=== PATIENT | male | born 1960 | race Caucasian/White ===

== ENCOUNTER → 2018-04-06 | Outpatient (CLI) | payer OTHER | END | disposition home or self-care (01) | LOC: OIH 15:03 | PROVIDERS: ATTEND Internal Medicine Cardiovascular Disease | DX: Z13.6 Encounter for screening for cardiovascular disorders (principal) | CPT/HCPCS: 75571 ==

== ENCOUNTER → 2019-12-26 | Outpatient (CLI) | payer OTHER | END | disposition home or self-care (01) | LOC: RAH 10:02 | PROVIDERS: ATTEND Internal Medicine Cardiovascular Disease | DX: Z13.6 Encounter for screening for cardiovascular disorders (principal); I71.4 Abdominal aortic aneurysm, without rupture | CPT/HCPCS: 75571 ==

== ENCOUNTER 2020-10-29 06:23 | Day surgery (SDC) | payer OTHER ==
[2020-10-22 10:04] LABS: BASOPHILS % (AUTO) 0.9 % (0.0-5.0); EOSINOPHILS % (AUTO) 3.8 % (0.0-8.0); HEMATOCRIT 45.4 % (42-54); LYMPHOCYTES % (AUTO) 16.9 % (21.0-51.0); MEAN CORPUSCULAR HEMOGLOBIN 29.7 pg (27.0-33.0); MEAN CORPUSCULAR HGB CONC 33.7 g/dL (32.0-36.0); MEAN CORPUSCULAR VOLUME 88.2 fL (79-99); MONOCYTES % (AUTO) 6.2 % (3.0-13.0); NEUTROPHILS % (AUTO) 71.4 % (40.0-77.0); PLATELET COUNT (AUTO) 418 K/uL (130-400); RED BLOOD CELL COUNT(AUTO) 5.15 MIL/uL (4.50-6.20); RED CELL DISTRIBUTION WIDTH 13.2 % (11.0-15.5); WHITE BLOOD COUNT (AUTO) 10.3 K/uL (4.8-10.8)
[2020-10-22 10:08] LABS: CREATININE 0.8 mg/dL (0.5-1.5); POTASSIUM 3.9 mmol/L (3.5-5.1)
[2020-10-26 09:20] VITALS: BP 166/96
[2020-10-29] VITALS (16 sets, daily range): BP systolic 115–159; BP diastolic 73–100
[~2020-10-29] VITALS: Ht 182.9 cm; Wt 141.5 kg
[~2020-10-29 06:23] MED LIST: ASPI-1005 PO; LISI-613 PO; LOSA100T58 PO
[2020-10-29] MEDS ORDERED: CEFAZOLIN SODIUM 1 GM VIAL ONE (06:47)
[2020-10-29] MEDS ORDERED: LACTATED RINGERS 1000ML 1,000 ML IV ONE (06:48)
[2020-10-29] MEDS ORDERED: FENTANYL CITRATE PF 50 MCG/1 ML 2ML VIAL ONE (07:24)
[2020-10-29] MEDS ORDERED: ROCURONIUM 10MG/1ML SYR 10 MG/ML ML ONE (07:24)
[2020-10-29] MEDS ORDERED: LIDOCAINE PF 2% 5ML ABBOJECT ONE (07:24)
[2020-10-29] MEDS ORDERED: PROPOFOL 10 MG/ML 20ML VIAL IV ONE ×2 (07:24→09:27)
[2020-10-29] MEDS ORDERED: MIDAZOLAM HCL 1 MG/ML 2ML VIAL ONE (07:24)
[2020-10-29] MEDS ORDERED: SUCCINYLCHOLINE CHLORIDE 20 MG/ML 10 ML VIAL ONE (07:24)
[2020-10-29] MEDS ORDERED: ATOR20TA65 PO (07:35)
[2020-10-29] MEDS ORDERED: IBUP-2071 PO (07:35)
[2020-10-29] MEDS ORDERED: DEXAMETHASONE SOD PHOSPHATE 4 MG/ML 1ML VIAL ONE (08:26)
[2020-10-29] MEDS ORDERED: ONDANSETRON HCL 4 MG/2 ML VIAL ONE (08:27)
[2020-10-29] MEDS ORDERED: ALBUTEROL INHALER 90MCG/INH IH ONE (08:43)
[2020-10-29] MEDS ORDERED: NEOSTIGMINE 5MG/5ML SYR IV ONE (08:46)
[2020-10-29] MEDS ORDERED: GLYCOPYRROLATE 1 MG/5 ML SYRINGE ONE (08:46)
[2020-10-29] MEDS ORDERED: CEPH500B PO (09:30)
[2020-10-29] MEDS ORDERED: ACET1TAB25 PO (09:30)
[2020-10-29] MEDS ORDERED: MEPERIDINE-PF 25 MG/ML SYG ONE (10:02)
== END 2020-10-29 11:10 | disposition home or self-care (01) ==
LOC: DAH 06:23
PROVIDERS: ATTEND Orthopaedic Surgery
DX: S83.242A Other tear of medial meniscus, current injury, left knee, initial encounter (principal); M17.12 Unilateral primary osteoarthritis, left knee; Z20.828 Contact with and (suspected) exposure to other viral communicable diseases; M22.42 Chondromalacia patellae, left knee; G89.29 Other chronic pain; I10 Essential (primary) hypertension; J45.909 Unspecified asthma, uncomplicated; G47.30 Sleep apnea, unspecified; E78.5 Hyperlipidemia, unspecified; E66.9 Obesity, unspecified; Z98.890 Other specified postprocedural states; Z82.49 Family history of ischemic heart disease and other diseases of the circulatory system; Z72.89 Other problems related to lifestyle; Z79.899 Other long term (current) drug therapy; X58.XXXA Exposure to other specified factors, initial encounter; Y93.89 Activity, other specified; Y92.89 Other specified places as the place of occurrence of the external cause
CPT/HCPCS: 29881; 36415; 80048; 85025; A4215; A4221; A4222; A4223; A4606; A4649 ×2; A4663; A4930; A6223; C9803; J0330; J0690; J1100; J2001; J2175; J2250; J2405; J2704 ×2; J2710; J3010; J3490; J7120 ×2; U0003

== ENCOUNTER → 2021-01-10 | Outpatient (CLI) | payer OTHER ==
[~2021-01-10] MED LIST changes: +ACET1TAB25 PO; +ATOR20TA65 PO; +CEPH500B PO; +IBUP-2071 PO; -LISI-613 PO; +LISI20TA24 PO
== END | disposition home or self-care (01) ==
LOC: RAH 13:51
PROVIDERS: ATTEND Internal Medicine Cardiovascular Disease
DX: Z13.6 Encounter for screening for cardiovascular disorders (principal)
CPT/HCPCS: 75571

== ENCOUNTER 2021-12-13 09:00 | Inpatient (IN) | payer OTHER ==
[~2021-12-13] VITALS: Ht 182.9 cm; Wt 144.2 kg
[~2021-12-13 09:00] MED LIST changes: -ACET1TAB25 PO; -ASPI-1005 PO; -ATOR20TA65 PO; -CEPH500B PO; -IBUP-2071 PO; -LISI20TA24 PO
[2021-12-13 09:36] LABS: BASOPHILS % (AUTO) 0.8 % (0.0-5.0); EOSINOPHILS % (AUTO) 2.8 % (0.0-8.0); HEMATOCRIT 43.6 % (42-54); LYMPHOCYTES % (AUTO) 18.1 % (21.0-51.0); MEAN CORPUSCULAR HEMOGLOBIN 29.4 pg (27.0-33.0); MEAN CORPUSCULAR HGB CONC 33.9 g/dL (32.0-36.0); MEAN CORPUSCULAR VOLUME 86.7 fL (79-99); MONOCYTES % (AUTO) 6.5 % (3.0-13.0); NEUTROPHILS % (AUTO) 70.8 % (40.0-77.0); PLATELET COUNT (AUTO) 378 K/uL (130-400); RED BLOOD CELL COUNT(AUTO) 5.03 MIL/uL (4.50-6.20); RED CELL DISTRIBUTION WIDTH 13.3 % (11.0-15.5); WHITE BLOOD COUNT (AUTO) 10.9 K/uL (4.8-10.8)
[2021-12-13 09:44] LABS: APPEARANCE,URINE Clear (CLEAR); BILIRUBIN,URINE Negative (NEGATIVE); COLOR,URINE Yellow (YELLOW); GLUCOSE, URINE (UA) Negative (NEGATIVE); KETONES,URINE Negative (NEGATIVE); LEUKOCYTE ESTERASE ,URINE Negative (NEGATIVE); NITRATE,URINE Negative (NEGATIVE); OCCULT BLOOD,URINE Negative (NEGATIVE); PH,URINE 7.5 (5.0-8.0); PROTEIN,URINE Negative (NEGATIVE)
[2021-12-13 09:51] LABS: CREATININE 0.7 mg/dL (0.5-1.5); POTASSIUM 3.4 mmol/L (3.5-5.1)
[2021-12-13 09:53] VITALS: BP 123/79
[2021-12-13 09:55] LABS: INR 1.01 (0.85-1.15)
[2021-12-13] MEDS ORDERED: AMLO-257 PO (11:08)
[2021-12-13] MEDS ORDERED: ATOR-2 PO (11:08)
[2021-12-13] MEDS ORDERED: LOSA100T58 PO (11:08)
[2021-12-13] MEDS ORDERED: CHLO25TA3 PO (11:08)
[2021-12-16] VITALS (26 sets, daily range): BP systolic 97–159; BP diastolic 50–106
[2021-12-16] MEDS ORDERED: LACTATED RINGERS 1000ML 1,000 ML IV ONE (06:45)
[2021-12-16] MEDS: CEFAZOLIN SODIUM 1 GM VIAL ONE ×2 (06:53→08:49)
[2021-12-16] MEDS ORDERED: ASPI-1443 PO (06:55)
[2021-12-16] MEDS ORDERED: CEFAZOLIN SODIUM 1 GM VIAL ONE (07:39)
[2021-12-16] MEDS ORDERED: CEFAZOLIN SODIUM 3 GM in 0.9%NACL 100ML 100 ML IVP SCH ×2 (08:00→19:30)
[2021-12-16] MEDS ORDERED: LIDOCAINE PF 100MG/5ML (2%) SYRINGE 5ML ONE (08:33)
[2021-12-16] MEDS ORDERED: SUCCINYLCHOLINE CHLORIDE 20 MG/ML 10 ML VIAL ONE (08:34)
[2021-12-16] MEDS ORDERED: MIDAZOLAM HCL 1 MG/ML 2ML VIAL ONE (08:34)
[2021-12-16] MEDS ORDERED: PROPOFOL 10 MG/ML 20ML VIAL IV ONE (08:34)
[2021-12-16] MEDS ORDERED: FENTANYL CITRATE PF 50 MCG/1 ML 2ML VIAL ONE ×2 (08:34→09:23)
[2021-12-16] MEDS ORDERED: ROCURONIUM 10MG/1ML SYR 10 MG/ML ML ONE ×2 (08:34→09:23)
[2021-12-16] MEDS ORDERED: TRANEXAMIC ACID 1000MG/10ML ONE ×2 (08:40→11:15)
[2021-12-16] MEDS ORDERED: ENALAPRILAT DIHYDRATE 1.25MG/ML 1ML VIAL IV ONE (09:40)
[2021-12-16] MEDS ORDERED: CEFAZOLIN SODIUM 1 GM VIAL IRRIG ONE (09:40)
[2021-12-16] MEDS ORDERED: ROPIVACAINE 0.5% 5MG/ML 30ML IJ ONE (11:15)
[2021-12-16] MEDS ORDERED: DEXAMETHASONE SOD PHOSPHATE 10MG/ML 1ML VIAL ONE (11:20)
[2021-12-16] MEDS ORDERED: NEOSTIGMINE 5MG/5ML SYR IV ONE (11:23)
[2021-12-16] MEDS ORDERED: GLYCOPYRROLATE 1 MG/5 ML SYRINGE ONE (11:23)
[2021-12-16] MEDS ORDERED: DiphenhydrAMINE HCL 50 MG/ML VIAL IVP PRN (11:30)
[2021-12-16] MEDS ORDERED: LIDOCAINE HCL-MPF 1% 2ML VIAL IV PRN (11:30)
[2021-12-16] MEDS ORDERED: ONDANSETRON 4MG INJ IVP PRN (11:30)
[2021-12-16] MEDS: ACETAMINOPHEN 500 MG TABLET PO SCH ×2 (11:30→22:01)
[2021-12-16] MEDS ORDERED: KETOROLAC 15MG/ML VIAL (15MG/ML) IV PRN (11:30)
[2021-12-16] MEDS ORDERED: CALCIUM CARB 500MG PO PRN (11:30)
[2021-12-16] MEDS ORDERED: TEMAZEPAM 15 MG CAPSULE PO PRN (11:30)
[2021-12-16] MEDS ORDERED: POTASSIUM CHLORIDE 10% ELIXIR 20 MEQ/15 ML UDCUP PO PRN (11:30)
[2021-12-16] MEDS: 0.9%NACL 1000ML 1,000 ML IV SCH ×2 (11:30→22:05)
[2021-12-16] MEDS ORDERED: FERROUS FUMARATE 324 MG TABLET PO PRN (11:30)
[2021-12-16] MEDS ORDERED: CEFAZOLIN SODIUM 100 GM IV SCH (11:30)
[2021-12-16] MEDS ORDERED: POTASSIUM CHLORIDE 20MEQ/100ML 100 ML IV PRN (11:30)
[2021-12-16] MEDS: OXYCODONE HCL 5 MG TAB PO PRN (13:17)
[2021-12-16] MEDS: TRAMADOL HCL 50 MG TABLET PO PRN (18:50)
[2021-12-16] MEDS: CELECOXIB 200 MG CAP PO SCH (22:01)
[2021-12-16] MEDS: ASPIRIN 81 MG EC TAB PO SCH (22:01)
[2021-12-16] MEDS: CEFAZOLIN SODIUM 3 GM in DEXTROSE 5%-WATER 100 ML IVP SCH (22:01)
[2021-12-16] MEDS: FAMOTIDINE 20MG TAB PO SCH (22:01)
[2021-12-16] MEDS: PREGABALIN 25 MG CAP PO SCH (22:01)
[2021-12-17] MEDS: ACETAMINOPHEN 500 MG TABLET PO SCH ×3 (04:22→20:08)
[2021-12-17] MEDS: CEFAZOLIN SODIUM 3 GM in DEXTROSE 5%-WATER 100 ML IVP SCH (04:23)
[2021-12-17] MEDS: OXYCODONE HCL 5 MG TAB PO PRN ×4 (04:28→16:30)
[2021-12-17 05:28] VITALS: BP 137/87
[2021-12-17 05:38] LABS: HEMATOCRIT 37.8 % (42-54); MEAN CORPUSCULAR HEMOGLOBIN 29.7 pg (27.0-33.0); MEAN CORPUSCULAR HGB CONC 33.6 g/dL (32.0-36.0); MEAN CORPUSCULAR VOLUME 88.3 fL (79-99); RED BLOOD CELL COUNT(AUTO) 4.28 MIL/uL (4.50-6.20); RED CELL DISTRIBUTION WIDTH 13.1 % (11.0-15.5); WHITE BLOOD COUNT (AUTO) 16.8 K/uL (4.8-10.8)
[2021-12-17 05:58] LABS: CREATININE 0.8 mg/dL (0.5-1.5); POTASSIUM 3.2 mmol/L (3.5-5.1)
[2021-12-17] MEDS: 0.9%NACL 1000ML 1,000 ML IV SCH (07:30)
[2021-12-17 07:54] VITALS: BP 159/92
[2021-12-17] MEDS ORDERED: ASPIRIN 81 MG EC TAB PO SCH (09:00)
[2021-12-17] MEDS: Chlorthalidone 25 MG PO SCH (09:00)
[2021-12-17] MEDS: LOSARTAN 100 MG TABLET PO SCH (09:08)
[2021-12-17] MEDS: PREGABALIN 25 MG CAP PO SCH ×2 (09:08→20:07)
[2021-12-17] MEDS: ASPIRIN 81 MG EC TAB PO SCH ×2 (09:08→20:07)
[2021-12-17] MEDS: KCL 20 MEQ ERTAB PO PRN ×2 (09:09→11:56)
[2021-12-17] MEDS: CELECOXIB 200 MG CAP PO SCH ×2 (09:09→20:07)
[2021-12-17] MEDS: ATORVASTATIN 40 MG TABLET PO SCH (09:09)
[2021-12-17] MEDS: AMLODIPINE 5 MG TAB PO SCH (09:09)
[2021-12-17] MEDS: POLYETHYLENE GLYCOL 3350 17 GM POWD.PACK PO SCH (09:10)
[2021-12-17] MEDS: FAMOTIDINE 20MG TAB PO SCH ×2 (09:10→20:07)
[2021-12-17] MEDS: TRAMADOL HCL 50 MG TABLET PO PRN (09:12)
[2021-12-17 11:03] VITALS: BP 160/99
[2021-12-17 16:23] VITALS: BP 146/84
[2021-12-17 20:43] VITALS: BP 118/77
[2021-12-17 23:41] VITALS: BP 140/75
[2021-12-18] MEDS: OXYCODONE HCL 5 MG TAB PO PRN ×3 (00:53→11:37)
[2021-12-18] MEDS: ACETAMINOPHEN 500 MG TABLET PO SCH ×2 (04:11→11:38)
[2021-12-18 04:27] VITALS: BP 135/84
[2021-12-18 07:56] VITALS: BP 144/92
[2021-12-18] MEDS: PREGABALIN 25 MG CAP PO SCH (08:25)
[2021-12-18] MEDS: POLYETHYLENE GLYCOL 3350 17 GM POWD.PACK PO SCH (08:25)
[2021-12-18] MEDS: LOSARTAN 100 MG TABLET PO SCH (08:26)
[2021-12-18] MEDS: ATORVASTATIN 40 MG TABLET PO SCH (08:26)
[2021-12-18] MEDS: CELECOXIB 200 MG CAP PO SCH (08:26)
[2021-12-18] MEDS: AMLODIPINE 5 MG TAB PO SCH (08:26)
[2021-12-18] MEDS: ASPIRIN 81 MG EC TAB PO SCH (08:26)
[2021-12-18] MEDS: FAMOTIDINE 20MG TAB PO SCH (08:26)
[2021-12-18] MEDS ORDERED: HYDR-4060 PO (08:43)
[2021-12-18] MEDS ORDERED: AEC81 PO (08:43)
[2021-12-18] MEDS: Chlorthalidone 25 MG PO SCH (09:00)
[2021-12-18 11:09] VITALS: BP 137/82
[2021-12-18 15:59] VITALS: BP 136/78
[2021-12-19] MEDS ORDERED: BISACODYL 10 MG SUPP.RECT RC PRN (11:30)
== END 2021-12-18 18:00 | disposition home health service (06) | DRG 470 ==
LOC: EDSTATUS 09:00 → DAHIP 12-16 06:16 → 3AH 12-16 12:59
PROVIDERS: ADMIT Orthopaedic Surgery; ATTEND Orthopaedic Surgery
PROC: 0SRD0J9 Replacement of Left Knee Joint with Synthetic Substitute, Cemented, Open Approach (ICD-10-PCS; principal; 2021-12-16 09:28)
DX: M17.12 Unilateral primary osteoarthritis, left knee (principal); Z68.41 Body mass index [BMI] 40.0-44.9, adult; D62 Acute posthemorrhagic anemia; E87.6 Hypokalemia; Z20.822 Contact with and (suspected) exposure to COVID-19; I10 Essential (primary) hypertension; E78.5 Hyperlipidemia, unspecified; E66.01 Morbid (severe) obesity due to excess calories; I25.10 Atherosclerotic heart disease of native coronary artery without angina pectoris; I73.9 Peripheral vascular disease, unspecified; G89.29 Other chronic pain; G62.9 Polyneuropathy, unspecified; Z82.49 Family history of ischemic heart disease and other diseases of the circulatory system
CPT/HCPCS: 36415; 80048; 81003; 84132; 85025; 85027; 85610; 87088; 87635; 87641; 97039; G0378; J0330; J0690; J1100; J1885; J2001; J2250; J2704; J2710; J2795; J3010; J3490; J7030; J7060; J7120

== ENCOUNTER → 2022-09-18 | Outpatient (CLI) | payer OTHER ==
[~2022-09-18] MED LIST changes: +AEC81 PO; +AMLO-257 PO; +ATOR-2 PO; +CHLO25TA3 PO; +HYDR-4060 PO
== END | disposition home or self-care (01) ==
LOC: SHCH 08:37
PROVIDERS: ATTEND Internal Medicine Cardiovascular Disease
DX: R60.0 Localized edema (principal); I10 Essential (primary) hypertension; I73.9 Peripheral vascular disease, unspecified; I25.10 Atherosclerotic heart disease of native coronary artery without angina pectoris; E78.5 Hyperlipidemia, unspecified; G47.33 Obstructive sleep apnea (adult) (pediatric); Z79.82 Long term (current) use of aspirin; Z79.899 Other long term (current) drug therapy
CPT/HCPCS: 93970

== ENCOUNTER → 2023-01-05 | Outpatient (CLI) | payer OTHER ==
[~2023-01-05] MED LIST changes: +REGADENOSON 0.4 MG/5 ML PF SYG IVP SCH
== END | disposition home or self-care (01) ==
LOC: SHCH 08:49
PROVIDERS: ATTEND Internal Medicine Cardiovascular Disease
DX: I45.10 Unspecified right bundle-branch block (principal); I48.91 Unspecified atrial fibrillation; I11.9 Hypertensive heart disease without heart failure; R93.1 Abnormal findings on diagnostic imaging of heart and coronary circulation; R07.9 Chest pain, unspecified; E78.5 Hyperlipidemia, unspecified; I87.2 Venous insufficiency (chronic) (peripheral); I73.9 Peripheral vascular disease, unspecified; E66.01 Morbid (severe) obesity due to excess calories; Z68.41 Body mass index [BMI] 40.0-44.9, adult; Z79.82 Long term (current) use of aspirin; Z79.899 Other long term (current) drug therapy
CPT/HCPCS: 78452; 96374; 93017; J2785; A9500 ×2

== ENCOUNTER → 2023-03-02 | Outpatient (CLI) | payer OTHER ==
[~2023-03-02] MED LIST changes: -REGADENOSON 0.4 MG/5 ML PF SYG IVP SCH
== END | disposition home or self-care (01) ==
LOC: SHCH 10:22
PROVIDERS: ATTEND Internal Medicine Cardiovascular Disease
DX: I87.2 Venous insufficiency (chronic) (peripheral) (principal); Z98.890 Other specified postprocedural states
CPT/HCPCS: 93971

== ENCOUNTER 2023-04-28 15:47 | Emergency (ER) | payer OTHER ==
[~2023-04-28] VITALS: Ht 182.9 cm; Wt 147.9 kg
[~2023-04-28 15:47] MED LIST changes: -LOSA100T58 PO; +LOSA100T59 PO
[2023-04-28 16:33] LABS: BASOPHILS % (AUTO) 0.8 % (0.0-5.0); EOSINOPHILS % (AUTO) 3.1 % (0.0-8.0); HEMATOCRIT 43.7 % (42-54); LYMPHOCYTES % (AUTO) 19.3 % (21.0-51.0); MEAN CORPUSCULAR HEMOGLOBIN 29.9 pg (27.0-33.0); MEAN CORPUSCULAR HGB CONC 33.6 g/dL (32.0-36.0); MONOCYTES % (AUTO) 8.1 % (3.0-13.0); NEUTROPHILS % (AUTO) 67.7 % (40.0-77.0); PLATELET COUNT (AUTO) 325 K/uL (130-400); RED BLOOD CELL COUNT(AUTO) 4.91 MIL/uL (4.50-6.20); RED CELL DISTRIBUTION WIDTH 14.3 % (11.0-15.5); WHITE BLOOD COUNT (AUTO) 10.7 K/uL (4.8-10.8)
[2023-04-28 16:44] LABS: CREATININE 0.7 mg/dL (0.5-1.5); POTASSIUM 3.8 mmol/L (3.5-5.1)
[2023-04-28 16:49] LABS: ALBUMIN 3.4 g/dL (3.5-5.0); TOTAL PROTEIN, SERUM 6.7 g/dL (6.0-8.3)
[2023-04-28] MEDS ORDERED: HYDR12.54 PO (18:10)
[2023-04-28 18:28] VITALS: BP 157/78
[2023-04-28] MEDS ORDERED: HYDROCHLOROTHIAZIDE 25 MG TABLET PO ONE (18:30)
[2023-04-28] MEDS ORDERED: HYDROCHLOROTHIAZIDE 25 MG TABLET ONE (18:34)
== END 2023-04-28 18:47 | disposition home or self-care (01) ==
LOC: EDH 15:47
DX: I10 Essential (primary) hypertension (principal); E11.9 Type 2 diabetes mellitus without complications; E78.00 Pure hypercholesterolemia, unspecified; Z79.82 Long term (current) use of aspirin; Z79.899 Other long term (current) drug therapy
CPT/HCPCS: 36415; 71045; 80053; 83880; 84484; 85025; 93005

== ENCOUNTER → 2023-12-30 | Outpatient (CLI) | payer OTHER ==
[~2023-12-30] MED LIST changes: +HYDR12.54 PO
== END | disposition home or self-care (01) ==
LOC: SHCH 12:45
PROVIDERS: ATTEND Internal Medicine Cardiovascular Disease
DX: I25.10 Atherosclerotic heart disease of native coronary artery without angina pectoris (principal); I73.9 Peripheral vascular disease, unspecified
CPT/HCPCS: 93880